=== PATIENT | male | born 1980 | race Caucasian/White ===

== ENCOUNTER 2022-07-17 08:48 | Outpatient (CLI) | payer BC, SELFPAY ==
--- NOTE | 2022-09-17 14:26 | W.PM.SLEEP ---
Sleep Study Details Details Interpreting Provider: Lisandra Date of Sleep Study: 07/17/22 Sleep Study Details: STUDY TYPE: Home unattended ? BMI:? 32.1 ORDERING PROVIDER:? El INDICATION:? Concerns about sleep apnea ? SLEEP SUMMARY:? 441 minutes monitored RESPIRATORY SUMMARY:? AHI 3.8, supine 2.7, left lateral 12, right lateral 1.9 PERIODIC LIMB MOVEMENTS OF SLEEP:? Not recorded during home study CARDIAC:? 47-96, mean 56.1 IMPRESSION:? This study does not demonstrate clinically significant obstructive sleep apnea. The overall AHI is 3.8. However the patient did have mild apnea on the left side with an AHI of 12. RECOMMENDATION: If sleep disorder is strongly suspected would recommend repeat study in the hospital lab.
== END 2022-07-17 08:49 | disposition home or self-care (01) ==
LOC: NFLDREF 07-18 03:21
PROVIDERS: PCP Family Medicine; Referring Provider Family Medicine; Visit Provider Family Medicine
DX: Z00.00 Encounter for general adult medical examination without abnormal findings (principal); E78.5 Hyperlipidemia, unspecified; E66.9 Obesity, unspecified; R03.0 Elevated blood-pressure reading, without diagnosis of hypertension
CPT/HCPCS: 80053; 80061

== ENCOUNTER 2022-07-31 13:33 | Outpatient (CLI) | payer BC, SELFPAY ==
--- NOTE | 2022-07-31 13:45 | CRLHL7_ITS ---
For Patients: As a result of the Century Cures Act, medical imaging exams and procedure reports are released immediately into your electronic medical record. You may view this report before your referring provider. If you have questions, please contact your health care provider. Indication: Lumbar radiculopathy. Technique: Multiplanar, multisequence MRI of the lumbar spine was performed without intravenous contrast. Comparison: None relevant available. Findings: There are 5 lumbar type vertebral segments identified. The vertebral body heights are maintained without evidence of fracture. There is no discrete T1 hypointense marrow infiltrating process. The conus medullaris terminates at L1, normal. Cauda equina appears unremarkable. T12-L1: No spinal canal or neural foraminal stenosis. L1-2: No spinal canal or neural foraminal stenosis. L2-3: No spinal canal or neural foraminal stenosis. L3-4: Mild disc degeneration. Minimal disc bulge without spinal canal narrowing. Mild left neural foraminal narrowing. L4-5: Slight disc degeneration. Minimal disc bulge without spinal canal narrowing. Mild right neural foraminal narrowing. L5-S1: Moderate disc degeneration. Mild opposing endplate degenerative marrow edema. Disc bulge with superimposed left subarticular disc protrusion. Slight abutment of the descending left S1 nerve without overt compression. Mild to moderate neural foraminal narrowing. Moderate facet arthropathy. Mild sacroiliac joint osteoarthritis. Impression: 1. At L5-S1, small left subarticular disc protrusion, slightly abutting without overtly compressing the descending left S1 nerve. Mild to moderate neural foraminal narrowing. 2. At L4-5, mild right neural foraminal narrowing. 3. At L3-4, mild left neural foraminal narrowing. Dictated by Dedrick Marie MD @ 07/31/2022 3:28:08 PM (Electronically Signed)
== END 2022-07-31 13:34 | disposition home or self-care (01) ==
LOC: MRI 13:33
PROVIDERS: PCP Family Medicine; Visit Provider Family Medicine
DX: M54.16 Radiculopathy, lumbar region (principal); M51.27 Other intervertebral disc displacement, lumbosacral region; M51.26 Other intervertebral disc displacement, lumbar region; R20.2 Paresthesia of skin; R29.898 Other symptoms and signs involving the musculoskeletal system
CPT/HCPCS: 72148

== ENCOUNTER 2022-09-03 09:00 | Outpatient (CLI) | payer BC, SELFPAY | END 2022-09-03 09:01 | disposition home or self-care (01) | LOC: SLEEP 09-23 17:32 | PROVIDERS: PCP Family Medicine; Visit Provider Otolaryngology | DX: R06.83 Snoring (principal); R06.81 Apnea, not elsewhere classified; G47.10 Hypersomnia, unspecified | CPT/HCPCS: 95806 ==

== ENCOUNTER 2023-01-22 07:43 | Outpatient (CLI) | payer BC, SELFPAY ==
--- NOTE | 2023-01-22 08:15 | CRLHL7_ITS ---
For Patients: As a result of the Century Cures Act, medical imaging exams and procedure reports are released immediately into your electronic medical record. You may view this report before your referring provider. If you have questions, please contact your health care provider. INDICATION: 42-year-old male. Reported findings on an outside MRI of the brain not otherwise specified. Informed consent was obtained. Benefits and risks were discussed. Risks included pain, bleeding, infection, and the possibility of an unsuccessful or nondiagnostic procedure. The possibility of post lumbar puncture headache was also discussed with the patient. The patient agreed to proceed. [place] Protocol: A. Pre-procedure verification complete: Yes 1-relevant information/documentation available, reviewed and properly matched to the patient; 2-consent accurate and complete, 3-equipment and supplies available. B. Site marking complete: Yes Site marked if not in continuous attendance with patient. C. TIME OUT completed: Yes Time Out was conducted just prior to starting procedure to verify the eight required elements: 1-patient identity, 2-consent accurate and complete, 3-position, 4-correct side/site marked (if applicable), 5-procedure, 6-relevant images/results properly labeled and displayed (if applicable), 7-antibiotics/irrigation fluids (if applicable), 8-safety precautions, 9-laboratory results were reviewed. Utilizing sterile technique and 1 percent lidocaine for local anesthetic, a 3-1/2 inch spinal needle was advanced into the thecal sac at the L4-5 level slightly to the left of midline without difficulty. The opening pressure was measured between 19 and 20 cm of water. Subsequently, 10 cc in total of cerebrospinal fluid was withdrawn and sent to the lab for analysis. The fluid was blood-tinged throughout likely due to a traumatic tap. The patient tolerated the procedure well. There were no immediate complications. No subsequent imaging. 1 minute 31 seconds fluoroscopy time utilized. IMPRESSION: 1. Technically successful fluoroscopically-guided lumbar puncture. 2. 10 cc of fluid was sent to the lab for analysis. The fluid is bloody-tinged likely due to a traumatic tap. 3. Opening pressure as reported above. Dictated by Chacho Wilson MD @ 01/22/2023 3:55:14 PM (Electronically Signed)
[2023-01-22 09:55] VITALS: BP 126/82; PULSE 58; RESP 16; O2SAT 96
[2023-01-22 10:33] LABS: CSF Mononuclear Cells 75 %; CSF Polynuclear Cells 25 %; RBC, CSF 6000 Cells/uL; WBC, CSF 8 Cells/uL
[2023-01-22 10:43] LABS: Appearance CSF Slightly Cloudy (Clear); Color CSF Blood Tinged (Colorless); Glucose, CSF* 53 Mg/dL (40-70); Total Volume 6.5 mL (0-6)
[2023-01-22 10:45] VITALS: BP 124/77; PULSE 63; RESP 18; O2SAT 97
[2023-01-22 10:51] VITALS: BP 124/77; PULSE 63; RESP 18; O2SAT 97
[2023-01-22 12:20] VITALS: BP 119/74; PULSE 60; RESP 16; O2SAT 99
== END 2023-01-22 12:45 | disposition home or self-care (01) ==
PROVIDERS: PCP Family Medicine; Visit Provider Psychiatry & Neurology Neurology
DX: R20.2 Paresthesia of skin (principal); R93.0 Abnormal findings on diagnostic imaging of skull and head, not elsewhere classified
CPT/HCPCS: 36415; 62328; 77003; 82040; 82042; 82164; 82784; 82945; 83916; 84157; 86711; 87205; 87327; 88108; 88112; 89051

== ENCOUNTER 2023-12-13 07:43 | Outpatient (CLI) | payer BC, SELFPAY | END 2023-12-13 07:44 | disposition home or self-care (01) | LOC: NFLDREF 12-17 08:20 | PROVIDERS: PCP Family Medicine; Referring Provider Family Medicine; Visit Provider Family Medicine | DX: Z00.00 Encounter for general adult medical examination without abnormal findings (principal); E78.5 Hyperlipidemia, unspecified; E66.9 Obesity, unspecified | CPT/HCPCS: 80053; 80061 ==